=== PATIENT | female | born 1975 | race Caucasian/White ===

== ENCOUNTER 2021-10-31 19:20 | Emergency (ER) | payer OTHER ==
[~2021-10-31] VITALS: Ht 162.6 cm; Wt 132.9 kg
[~2021-10-31 19:20] MED LIST: ADVAIR 100-501 EACH INH; ALBUTEROL2.5 MG/3 M INH; BACLOFEN10 MG PO; BACLOFEN20 MG PO; DOK100 MG PO; FLUTICASONE PRO16 GM NAS; IBUPROFEN800 MG PO; LEVAQUIN750 MG PO; LEVOTHYROXINE25 MCG PO; MOTRIN IB200 MG PO; NORCO 5-325 TA1 EACH PO; NORCO 7.5-3251 EACH PO; PERCOCET 5-3251 EACH PO; PROZAC20 MG PO; QVAR7.3 G1 INH; SENNA8.6 MG PO; SPIRONOLACTONE50 MG PO; TRAZODONE HCL100 MG PO; TRAZODONE HCL150 MG PO; VENTOLIN HFA18 GM INH
[2021-10-31] MEDS ORDERED: DULOXETINE HCL30 MG PO (22:53)
[2021-10-31] MEDS ORDERED: METOPROLOL SUCC25 MG PO (22:53)
[2021-10-31] MEDS ORDERED: CELEBREX200 MG PO (22:55)
== END 2021-11-01 00:14 | disposition home or self-care (01) ==
LOC: ED 19:20
DX: S83.92XA Sprain of unspecified site of left knee, initial encounter (principal); X50.1XXA Overexertion from prolonged static or awkward postures, initial encounter; F17.200 Nicotine dependence, unspecified, uncomplicated; Z88.0 Allergy status to penicillin; Z88.1 Allergy status to other antibiotic agents; Z88.2 Allergy status to sulfonamides; Z79.899 Other long term (current) drug therapy
CPT/HCPCS: 36415; 73560; 84550; 85379; 96372; 99283-25; A9270; J1885